=== PATIENT | male | born 2005 | race Hispanic/Latino ===

== ENCOUNTER 2024-06-12 15:19 | Emergency (ER) | payer BC | END 2024-06-12 16:13 | disposition home or self-care (01) | LOC: CSHERS 15:19 | DX: S50.02XA Contusion of left elbow, initial encounter (principal); X58.XXXA Exposure to other specified factors, initial encounter | CPT/HCPCS: 99283 ==

== ENCOUNTER 2025-04-20 14:35 | Emergency (ER) | payer BC ==
[2025-04-20] MEDS ORDERED: Acetaminophen 500 MG TAB ONE (15:03)
[2025-04-20] MEDS ORDERED: Ibuprofen 200 MG TAB ONE (15:03)
[2025-04-20] MEDS ORDERED: Dexamethasone 10 MG/ML VIAL ONE (16:04)
[2025-04-20 16:19] LABS: #Basophils Less than 0.03 10x3/uL (0.0-0.2); #Eosinophils 0.16 10x3/uL (0.0-0.5); #Monocytes 1.13 10x3/uL (0.0-1.1); #Neutrophils 6.39 10x3/uL (1.5-8.4); %Basophils 0.2 % (0.0-2.0); %Eosinophils 1.9 % (0.0-6.0); %Lymphocytes 9.9 % (18.0-47.0); %Monocytes 13.2 % (0.0-10.0); %Neutrophils 74.6 % (40.0-75.0); Hematocrit 37.1 % (38.8-50.0); Hemoglobin 13.1 g/dL (13.5-17.5); Mean Corpuscular Hemoglobin 31.5 pg (27.0-33.0); Mean Corpuscular Volume 89.2 fL (81.2-95.1); Platelet Count 185 10x3/uL (150-450); Red Blood Cell (RBC) Count 4.16 10x6/uL (4.32-5.72); White Blood Cell (WBC) Count 8.57 10x3/uL (3.5-10.5)
[2025-04-20 16:34] LABS: ALT (SGPT) 13 U/L (Less than 45); AST (SGOT) 22 U/L (11-34); Albumin 4.2 g/dL (3.1-4.5); Alkaline Phosphatase 55 U/L (40-110); Anion Gap 13 mmol/L (10-20); BUN (Urea Nitrogen) 12 mg/dL (8.9-20.6); Bilirubin, Total 0.8 mg/dL (0.3-1.2); Calc. Creatinine Clearance 0 mL/min (70-130); Calcium 8.8 mg/dL (7.8-10.44); Carbon Dioxide 26 mmol/L (22-29); Chloride 100 mmol/L (98-107); Globulin 3.1 g/dL (2.4-3.5); Glucose 102 mg/dL (70-105); Potassium 3.9 mmol/L (3.5-5.1); Sodium 135 mmol/L (136-145)
[2025-04-20 16:40] LABS: Troponin I Less than 0.010 ng/mL (< 0.028)
== END 2025-04-20 17:20 | disposition home or self-care (01) ==
LOC: CSHERS 14:35
DX: R07.9 Chest pain, unspecified (principal); J06.9 Acute upper respiratory infection, unspecified
CPT/HCPCS: 71046; 80053; 84484; 85025; 87081; 87428; 87430; 93005; 96361; 96374; J1100